=== PATIENT | female | born 1960 | race Caucasian/White ===

== ENCOUNTER 2018-01-24 07:35 | Emergency (ER) | payer MEDICAID ==
[2018-01-24] MEDS ORDERED: ACETAMINOPHEN 325 MG TABLET PO ONE (08:17)
[2018-01-24 09:57] LABS: ABSOLUTE EOSINOPHILS # (AUTO) 0.3 10^3/uL (0.0-0.6); ABSOLUTE LYMPHOCYTES (AUTO) 2.7 10^3/uL (0.5-4.7); ABSOLUTE MONOCYTES (AUTO) 0.5 10^3/uL (0.1-1.4); ABSOLUTE NEUT (AUTO) 4.2 10^3/uL (1.7-8.2); BASOPHILS % (AUTO) 0.6 % (0-2); EOSINOPHILS % (AUTO) 3.9 % (0-6); HEMATOCRIT 34.3 % (36.0-47.0); LYMPHOCYTES % (AUTO) 34.7 % (13-45); MEAN CORPUSCULAR HEMOGLOBIN 33.2 pg (27.0-33.4); MEAN CORPUSCULAR VOLUME 95 fl (80-97); MONOCYTES % (AUTO) 6.5 % (3-13); PLATELET COUNT 291 10^3/uL (150-450); RED BLOOD COUNT 3.62 10^6/uL (3.72-5.28); RED CELL DISTRIBUTION WIDTH 14.1 % (11.5-14.0); SEGMENTED NEUTROPHILS % (AUTO) 54.3 % (42-78); TOTAL CELLS COUNTED % (AUTO) 100 %; WHITE BLOOD COUNT 7.7 10^3/uL (4.0-10.5)
[2018-01-24 10:13] LABS: ALANINE AMINOTRANSFERASE 28 U/L (9-52); ALBUMIN 4.1 g/dL (3.5-5.0); ALKALINE PHOSPHATASE 100 U/L (38-126); ANION GAP 15 (5-19); ASPARTATE AMINO TRANSFERASE 35 U/L (14-36); BILIRUBIN,DIRECT 0.2 mg/dL (0.0-0.4); BILIRUBIN,TOTAL 0.4 mg/dL (0.2-1.3); BLOOD UREA NITROGEN 18 mg/dL (7-20); CALCIUM 9.7 mg/dL (8.4-10.2); CARBON DIOXIDE 27 mmol/L (22-30); CHLORIDE 102 mmol/L (98-107); GLUCOSE 94 mg/dL (75-110); POTASSIUM 4.1 mmol/L (3.6-5.0); SODIUM 143.8 mmol/L (137-145); TOTAL PROTEIN 7.2 g/dL (6.3-8.2)
--- NOTE | 2018-01-24 10:27 | PSYCHOLOGICAL NOTE ---
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 Patient discloses that she just left [place] to live in the [facility] for sobriety. Patient currently lives at the [facility]. She states that the last time she used drugs was on 01/02/2018. She states her drug of choice is crack cocaine. Patient states is happy she is ever been. Patient discloses that she has been dealing with worms or bugs in her skin that make her itch. She reports this is been going on for 2 years. Clinician notes patient's body is covered in circular scars. Patient attempts to show clinician bloody paper towels that have these bugs and worms however when she tries to show the clinician she cannot see them herself and states that the paper towels that have the bugs on them must have been taken by another [facility] staff member. Patient reports that she is more upset today because she was told by her mom though she was going to have her locked up and she thinks that the [facility] people will be taking her out stating "my feelings are hurt." Patient is alert and orientated to person, place, time and circumstance. Mood is anxious with tearful affect. Patient denies suicidal and homicidal ideation. Patient reports seeing bugs or worms coming out of her skin. Patient has multiple scars covering her body that are circular; she currently has an open wound on her right forearm. Patient discloses long-term crack cocaine use with the current attempt at sobriety; last use is reported January 02, 2018. Thought content is organized and linear however illogical. Eye contact is fair. Conversational speech clearly conveys her stress and anxiety. Attention and concentration are fair. Insight, judgment, impulse control are fair. Medication recommendations per [facility]'s contracted psychiatrist Dr. 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 Patient reports that she has been having symptoms of itching and seeing worms coming out of her skin for the last 2 years. She disclosed a history of substance abuse; her drug of choice is crack cocaine. Patient reports that the last time she used was 01/02/2018. 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 Patient discloses that she is currently the happy as she is ever been and is working hard at staying sober. While she is currently anxious in regards to her thoughts of worms in her skin she is more concerned that she was threatened to be "locked up" by her mother. She states that this hurt her feelings. Dr. Hernandez was consulted on the care and management of this patient; attending physician is in agreement with recommendations and disposition.
--- NOTE | 2018-01-24 11:17 | ER Document Report ---
Addendum entered and electronically signed by TIFFANI BENNETT LCSWA 01/25/18 15: 42: Discharge - Discharge Clinical Impression: Visual hallucination Condition: Stable Disposition: HOME, SELF-CARE Additional Instructions: You have been evaluated by both medical and behavioral health teams and been deemed appropriate for discharge. Medication adjustments have been recommended these include the following: Please decrease home medication of BuSpar to 10 mg twice daily Please decrease home medication of Cymbalta to 60 mg daily Please discontinue trazodone Please start Thorazine 50 mg twice daily Please start Cogentin 1 mg daily Please take as directed. You also recommended to follow-up with outpatient services with [facility] for both mental health and substance abuse treatment. Hallucinations You seem to be having hallucinations. Hallucinations are seeing, hearing, or feeling things that don't exist. These symptoms commonly occur with drug abuse and schizophrenia. Drugs like PCP, LSD, MDMA, peyote, and "psychedelic mushrooms" can cause frightening hallucinations. Users of methamphetamine or crack cocaine often see and feel bugs crawling on their skin. Patients with schizophrenia may hear voices that no one else can hear. The delusions of schizophrenia often involve conspiracies or relationships that are not real. When symptoms are due to drug abuse, the mental state usually improves as the drug wears off. Someone you trust should be with you until you are better, to protect you and calm your fears. Tranquilizer medicine is helpful at controlling hallucinations, anxiety, and deluded thoughts. Get a proper diet and enough sleep. Most patients do very well when they get proper medical treatment and social support. You should return at once if your symptoms get worse, if you are having suicidal thoughts or thoughts about hurting others, or if you feel that you are in danger. AT ANY TIME, IF YOUR SYMPTOMS CHANGE SIGNIFICANTLY OR WORSEN OR YOU DEVELOP NEW SYMPTOMS, RETURN TO THE EMERGENCY DEPARTMENT IMMEDIATELY FOR RE-EVALUATION. Referrals: [facility] [Outside] - Follow up in 3-5 days Addendum entered and electronically signed by GUSTAVO KRISHNAN NP 01/24/18 13:58 : Course - Re-evaluation Re-evalutation: 01/24/18 13:57 Notify the patient had return to the emergency department. Medication orders placed as per the recommendation of psychiatric services. A 24-hour petition was also put in place, signed by Dr. Amin my attending physician. I did update the patient on the plan of care. Patient verbalizes understanding. - Vital Signs Vital signs: Temp Pulse Resp BP Pulse Ox 98.5 F 90 16 171/96 H 94 01/24/18 07:40 01/24/18 07:40 01/24/18 07:40 01/24/18 07:40 01/24/18 07:40 - Laboratory Result Diagrams: 01/24/18 09:30 01/24/18 09:30 Laboratory results interpreted by me: 01/24/18 09:30 RBC 3.62 L Hct 34.3 L RDW 14.1 H Original Note: ED General - General Mode of Arrival: Ambulatory Information source: Patient TRAVEL OUTSIDE OF THE [place] IN LAST 30 DAYS: No <GUSTAVO KRISHNAN - Last Filed: 01/24/18 13:57> <TIFFANI BENNETT - Last Filed: 01/25/18 15:38> <TEODORO DEL CASTILLO - Last Filed: 01/25/18 16:00> - General Chief Complaint: Skin Problem Stated Complaint: SKIN PROBLEM Time Seen by Provider: 01/24/18 07:55 Notes: Patient is a 57-year-old female who presents with chief complaint of skin problem/"arm laceration". Patient reports that over the last 2-3 years she has been having bugs crawling out of her skin, she states they are worms. She states that every January they pop up is a tiny red spot, she itches them and then warms crawl out. Patient has a magnifying glass at bedside. She states that she is seen many dermatologists and primary care providers who all tell her that there are no worms there. Patient reports past medical history of hypertension, hyperlipidemia, diabetes mellitus, bipolar, depression, anxiety. She does state she has a past surgical history of hysterectomy, gallbladder removal and a Orth0 surgery. Patient is anxious but cooperative at this time. (GUSTAVO KRISHNAN) - Related Data Allergies/Adverse Reactions: No Known Allergies Allergy (Unverified 01/24/18 07:36) Past Medical History - Social History Smoking Status: Current Every Day Smoker Chew tobacco use (# tins/day): No Frequency of alcohol use: None Drug Abuse: None Family History: Reviewed & Not Pertinent Patient has suicidal ideation: No Patient has homicidal ideation: No - Past Medical History Cardiac Medical History: Reports: Hx Hypertension Endocrine Medical History: Reports: Hx Diabetes Mellitus Type 2 Renal/ Medical History: Denies: Hx Peritoneal Dialysis Past Surgical History: Reports: Hx Orthopedic Surgery - left ankle <GUSTAVO KRISHNAN - Last Filed: 01/24/18 13:57> Physical Exam <GUSTAVO KRISHNAN - Last Filed: 01/24/18 13:57> <TIFFANI BENNETT - Last Filed: 01/25/18 15:38> <TEODORO DEL CASTILLO - Last Filed: 01/25/18 16:00> - Vital signs Vitals: Temp Pulse Resp BP Pulse Ox 98.5 F 90 16 171/96 H 94 01/24/18 07:40 01/24/18 07:40 01/24/18 07:40 01/24/18 07:40 01/24/18 07:40 - Notes Notes: PHYSICAL EXAMINATION: GENERAL: Well-appearing, well-nourished and in no acute distress. HEAD: Atraumatic, normocephalic. EYES: Pupils equal round and reactive to light, extraocular movements intact, conjunctiva are normal. ENT: Nares patent, oropharynx clear without exudates. Moist mucous membranes. NECK: Normal range of motion, supple without lymphadenopathy LUNGS: Breath sounds clear to auscultation bilaterally and equal. No wheezes rales or rhonchi. HEART: Regular rate and rhythm without murmurs ABDOMEN: Soft, nontender, nondistended abdomen. No guarding, no rebound. No masses appreciated. Female : deferred Musculoskeletal: Normal range of motion, no pitting or edema. No cyanosis. NEUROLOGICAL: Cranial nerves grossly intact. Normal speech, normal gait. Normal sensory, motor exams PSYCH: Anxious, describing visual hallucinations. SKIN: Warm, Dry, normal turgor, scattered areas of skin breakdown, small red spots of erythema. (GUSTAVO KRISHNAN) Course - Laboratory Result Diagrams: 01/24/18 09:30 01/24/18 09:30 <GUSTAVO KRISHNAN - Last Filed: 01/24/18 13:57> <TIFFANI BENNETT - Last Filed: 01/25/18 15:38> - Laboratory Result Diagrams: 01/24/18 09:30 01/24/18 09:30 <TEODORO DEL CASTILLO - Last Filed: 01/25/18 16:00> - Re-evaluation Re-evalutation: Patient has multiple scattered healing lesions to all of her extremities. On her right forearm she does have one area that she has scratched and broken through the epidermis. There is no active bleeding at this time. Patient is continually picking at this she handed me a magnifying glass and wanted me to look at the worms that were calling out. There are no worms or any other living insects present. Patient denies any suicidal or homicidal ideations. Will put in a psychiatric consult. Psychiatric team is requesting lab work and urine. They are consulting with her most recent prescriber in [place]. Patient remains anxious but cooperative. 01/24/18 10:15 Patient eloped from room according to nursing staff. (GUSTAVO KRISHNAN) - Vital Signs Vital signs: Temp Pulse Resp BP Pulse Ox 97.4 F 74 16 151/94 H 97 01/25/18 07:25 01/25/18 07:25 01/25/18 07:25 01/25/18 07:25 01/25/18 07:25 - Laboratory Laboratory results interpreted by me: 01/24/18 01/25/18 09:30 07:32 RBC 3.62 L Hct 34.3 L RDW 14.1 H Urine Blood SMALL H Ur Leukocyte Esterase SMALL H Discharge <GUSTAVO KRISHNAN - Last Filed: 01/24/18 13:57> <TIFFANI BENNETT - Last Filed: 01/25/18 15:38> <TEODORO DEL CASTILLO - Last Filed: 01/25/18 16:00> - Discharge Clinical Impression: Visual hallucination Condition: Stable Disposition: HOME, SELF-CARE Additional Instructions: You have been evaluated by both medical and behavioral health teams and been deemed appropriate for discharge. Medication adjustments have been recommended these include the following: Please decrease home medication of BuSpar to 10 mg twice daily Please decrease home medication of Cymbalta to 60 mg daily Please discontinue trazodone Please start Thorazine 50 mg twice daily Please start Cogentin 1 mg daily Please take as directed. You also recommended to follow-up with outpatient services with [facility] for both mental health and substance abuse treatment. Hallucinations You seem to be having hallucinations. Hallucinations are seeing, hearing, or feeling things that don't exist. These symptoms commonly occur with drug abuse and schizophrenia. Drugs like PCP, LSD, MDMA, peyote, and "psychedelic mushrooms" can cause frightening hallucinations. Users of methamphetamine or crack cocaine often see and feel bugs crawling on their skin. Patients with schizophrenia may hear voices that no one else can hear. The delusions of schizophrenia often involve conspiracies or relationships that are not real. When symptoms are due to drug abuse, the mental state usually improves as the drug wears off. Someone you trust should be with you until you are better, to protect you and calm your fears. Tranquilizer medicine is helpful at controlling hallucinations, anxiety, and deluded thoughts. Get a proper diet and enough sleep. Most patients do very well when they get proper medical treatment and social support. You should return at once if your symptoms get worse, if you are having suicidal thoughts or thoughts about hurting others, or if you feel that you are in danger. AT ANY TIME, IF YOUR SYMPTOMS CHANGE SIGNIFICANTLY OR WORSEN OR YOU DEVELOP NEW SYMPTOMS, RETURN TO THE EMERGENCY DEPARTMENT IMMEDIATELY FOR RE-EVALUATION. Prescriptions: Benztropine Mesylate [Cogentin 1 mg Tablet] 1 tab PO DAILY #7 tab Buspirone HCl [Buspar 10 mg Tablet] 10 mg PO BID #14 tab Chlorpromazine HCl [Thorazine 50 mg Tablet] 50 mg PO BID #14 tablet Duloxetine HCl [Cymbalta] 60 mg PO DAILY #7 capsule. Referrals: [facility] [Outside] - Follow up in 3-5 days
[2018-01-24] MEDS: CHLORPROMAZINE HCL 50 MG TABLET PO SCH ×2 (14:04→17:17)
[2018-01-24] MEDS: BUSPIRONE HCL 10 MG TABLET PO SCH ×2 (14:04→17:17)
[2018-01-24] MEDS: DULOXETINE HCL 30 MG CAPSULE.DR PO SCH (14:04)
[2018-01-24] MEDS: BENZTROPINE MESYLATE 1 MG TABLET PO SCH (14:04)
[2018-01-25 08:17] LABS: APPEARANCE,URINE CLOUDY; BILIRUBIN,URINE NEGATIVE (NEGATIVE); COLOR,URINE YELLOW; GLUCOSE, URINE NEGATIVE (NEGATIVE); KETONES,URINE NEGATIVE (NEGATIVE); LEUKOCYTE ESTERASE,URINE SMALL (NEGATIVE); NITRITE,URINE NEGATIVE (NEGATIVE); PROTEIN,URINE NEGATIVE (NEGATIVE); URINE SPECIFIC GRAVITY 1.016; UROBILINOGEN,URINE NEGATIVE mg/dL (<2.0)
[2018-01-25 08:32] LABS: URINE AMPHETAMINES SCREEN NEGATIVE; URINE BARBITURATES SCREEN NEGATIVE; URINE BENZODIAZEPINES SCREEN UNCONFIRMED POSITIVE; URINE COCAINE SCREEN NEGATIVE; URINE MARIJUANA (THC) SCREEN NEGATIVE; URINE METHADONE SCREEN NEGATIVE; URINE PHENCYCLIDINE SCREEN NEGATIVE
[2018-01-25] MEDS ORDERED: NICOTINE 14 MG/24 HR PATCH.TD24 TD ONE (08:51)
[2018-01-25] MEDS: DULOXETINE HCL 30 MG CAPSULE.DR PO SCH (09:17)
[2018-01-25] MEDS: BENZTROPINE MESYLATE 1 MG TABLET PO SCH (09:18)
[2018-01-25] MEDS: CHLORPROMAZINE HCL 50 MG TABLET PO SCH (09:18)
[2018-01-25] MEDS: BUSPIRONE HCL 10 MG TABLET PO SCH (09:18)
[2018-01-25 16:12] VITALS: BP 156/86
--- NOTE | 2018-01-26 15:24 | PSYCHOLOGICAL NOTE ---
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 Clinician spoke with patient's daughter April who discloses concern the patient will not be able to return to the [employer] [employer] [facility] because she admitted to taking Klonopin. She states that her grandmother has been very overwhelmed with the recent of her sister and trying to take care of the patient. She states that the patient has a long history of substance abuse and has taken its toll on the family. Check in conducted with patient Patient reports that she is feeling much better after getting so much good sleep. She states that she had not been sleeping much in the last 3 or 4 days. She continued to report that she felt she was on a lot of medication which may have been contributing to her presentation yesterday. Clinician spoke with patient about daughter's concerns that the patient will not be able to return to the [facility]. She reports that if she cannot return she does have a friend that lives locally and will plan to stay with her until tomorrow when she can drive home ([place]) during the day. Patient disclosed that she hopes that she has not lost her's place and states that she was positive for benzodiazepines because of her time in detox. She reports that she has had a history of proving that it takes her body a long time to process and it stays in her system for approximately 2 weeks. Medication recommendations per [facility]'s contracted psychiatrist Dr. 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 Patient reported upon arrival to [facility] ED that she has been having symptoms of itching and seeing worms coming out of her skin for the last 2 years. She disclosed a history of substance abuse; her drug of choice is crack cocaine. Patient reports that the last time she used was 01/02/2018. Patient discloses that she is currently happier then she vitor ever been and is working hard at staying sober. Patient was re-evaluated after medication adjustments. Patient reports sleeping for the first time in about 3 or 4 days. Patient reports no concerns of skin issues or thinking she has bugs coming out of her skin. Thought processes are organized, linear, and now rational. Patient is calm and reports no concerns with her skin. Patient is recommended to continue with medication recommendations and follow up with [facility] for both mental health and substance abuse services. Dr. Hernandez was consulted on the care and management of this patient; attending physician is in agreement with recommendations and disposition.
== END 2018-01-25 16:22 | disposition home or self-care (01) ==
LOC: ER 07:35
DX: R44.1 Visual hallucinations (principal); F14.99 Cocaine use, unspecified with unspecified cocaine-induced disorder; F14.259 Cocaine dependence with cocaine-induced psychotic disorder, unspecified; E78.5 Hyperlipidemia, unspecified; I10 Essential (primary) hypertension; E11.9 Type 2 diabetes mellitus without complications; F31.9 Bipolar disorder, unspecified; F41.9 Anxiety disorder, unspecified; F17.200 Nicotine dependence, unspecified, uncomplicated; Z90.710 Acquired absence of both cervix and uterus
CPT/HCPCS: 99285; 36415; 87086; 85025; 87088; 80053; 81001; 87186; 80307; J3490 ×10